=== PATIENT | male | born 1965 | race Caucasian/White ===

== ENCOUNTER 2017-12-17 09:21 | Emergency (ER) | payer BC ==
--- NOTE | 2017-12-17 10:07 | ED ---
General Adult HPI - General Chief complaint: Fall Stated complaint: FALL, LEFT RIB PAIN, LEFT ELBOW Time Seen by Provider: 12/17/17 09:58 Source: patient, RN notes reviewed Mode of arrival: wheelchair Limitations: no limitations - History of Present Illness Initial comments: 52-year-old male presents to the emergency department with a chief complaint of left-sided rib pain and left sided elbow pain. Patient states that he slipped and fell on the ice. Patient states he came down on his left ribs he felt as if he heard a crack. Patient states it hurts to take a breath. He states it's tender to touch. Patient states that his head or neck. Patient does admit to some left elbow pain as well. Patient states is not currently having any other symptoms. Patient denies any other injury from the incident. Patient denies any recent fever, chills, shortness of breath, back pain, abdominal pain, nausea vomiting, numbness or tingling, dysuria or hematuria, constipation or diarrhea, headaches or visual changes, or any other current symptoms. - Related Data Home Medications Medication Instructions Recorded Confirmed Atorvastatin [Lipitor] 10 mg PO HS 12/17/17 12/17/17 Multivitamins, Thera [Multivitamin 1 tab PO DAILY 12/17/17 12/17/17 (formulary)] OXcarbazepine [Trileptal] 300 mg PO QAM 12/17/17 12/17/17 OXcarbazepine [Trileptal] 600 mg PO HS 12/17/17 12/17/17 busPIRone HCL [busPIRone HCL] 5 mg PO BID 12/17/17 12/17/17 fluvoxaMINE MALEATE [Fluvoxamine 100 mg PO DAILY 12/17/17 12/17/17 Maleate] Previous Rx's Medication Instructions Recorded Hydrocodone/Acetaminophen [[place] 1 each PO Q6HR PRN #20 tab 12/17/17 5-325] Allergies Allergy/AdvReac Type Severity Reaction Status Date / Time No Known Allergies Allergy Verified 12/17/17 10:04 Review of Systems ROS Statement: Those systems with pertinent positive or pertinent negative responses have been documented in the HPI. ROS Other: All systems not noted in ROS Statement are negative. Past Medical History Past Medical History: No Reported History History of Any Multi-Drug Resistant Organisms: None Reported Past Surgical History: Hernia Repair, Orthopedic Surgery Additional Past Surgical History / Comment(s): right shoulder repair, right bicep repair Past Psychological History: Bipolar Smoking Status: Never smoker Past Alcohol Use History: Occasional Past Drug Use History: None Reported General Exam Limitations: no limitations General appearance: alert, in no apparent distress Head exam: Present: atraumatic, normocephalic, normal inspection Eye exam: Present: normal appearance, PERRL, EOMI. Absent: scleral icterus, conjunctival injection, periorbital swelling Neck exam: Present: normal inspection. Absent: tenderness, meningismus, lymphadenopathy Respiratory exam: Present: normal lung sounds bilaterally, chest wall tenderness (Left-sided). Absent: respiratory distress, wheezes, rales, rhonchi , stridor Cardiovascular Exam: Present: regular rate, normal rhythm, normal heart sounds. Absent: systolic murmur, diastolic murmur, rubs, gallop, clicks GI/Abdominal exam: Present: soft, normal bowel sounds. Absent: distended, tenderness, guarding, rebound, rigid Extremities exam: Present: normal inspection, full ROM, tenderness (Minimal tenderness to left lateral elbow), normal capillary refill. Absent: pedal edema , joint swelling, calf tenderness Back exam: Present: normal inspection Neurological exam: Present: alert, oriented X3 Psychiatric exam: Present: normal affect, normal mood Skin exam: Present: warm, dry, intact, normal color. Absent: rash Course Vital Signs 12/17/17 09:53 Temperature 97.8 F Pulse Rate 62 Respiratory 18 Rate Blood Pressure 139/91 O2 Sat by Pulse 98 Oximetry Medical Decision Making - Medical Decision Making 52-year-old male presents emergency department with chief complaint of left- sided rib pain after a slip and fall. At this time patient does appear to have left-sided rib fractures. The eighth and the sixth rib. This elicits patient pain medication for home. We discussed care of her parameters. We discussed return parameters and follow-up and all questions. Patient stated that he understood he is given this plan. He will be discharged. - Radiology Data Radiology results: report reviewed, image reviewed Disposition Clinical Impression: Fall, Fracture of rib of left side Disposition: HOME SELF-CARE Condition: Stable Instructions: Rib Fracture (ED) Additional Instructions: Please use medication as discussed. Please follow up with family doctor if symptoms have not improved over the next two days. Please return to the emergency room if your symptoms increase or worsen or for any other concerns. Prescriptions: Hydrocodone/Acetaminophen [[place] 5-325] 1 each PO Q6HR PRN #20 tab PRN Reason: Pain Referrals: James Carroll MD [Primary Care Provider] - 1-2 days Time of Disposition: 11:43
--- NOTE | 2017-12-17 11:30 | XR ---
EXAMINATION TYPE: XR elbow complete LT DATE OF EXAM: 12/17/2017 COMPARISON: NONE HISTORY: Pain FINDINGS: Three views of the elbow demonstrate no pathologic joint effusion. The osseous structures are intact . There is no acute fracture or dislocation. Tiny spur involving the radial head. IMPRESSION: 1. No acute fracture or dislocation. If symptoms persist follow-up study in 7 to 10 days could be ob tained.
--- NOTE | 2017-12-17 11:41 | XR ---
EXAMINATION TYPE: XR ribs LT w pa chest xray DATE OF EXAM: 12/17/2017 COMPARISON: NONE HISTORY: L side lower rib pain from fall today TECHNIQUE: 5 views submitted FINDINGS: Frontal view of the chest and 4 views of the ribs are submitted. There are deformities involving the lateral left fifth sixth and seventh ribs compatible with previou s trauma. Subtle deformity involving the lateral margin of the left eighth rib. There also is a defor mity involving the posterior lateral sixth rib suspicious for acute fracture. IMPRESSION: 1. Acute fracture minimally displaced anterolateral left eighth rib and posterior lateral sixth rib. 2. Multiple chronic rib deformities.
[2017-12-17] MEDS ORDERED: KETOROLAC 60 MG/2 ML VIAL IM STA (11:43)
[2017-12-17] MEDS ORDERED: HYDROcodone/APAP 5-325MG 1 EACH TAB PO STA (11:43)
[2017-12-17 12:06] VITALS: BP 157/89; PULSE 58; RESP 16; TEMP 98.5
== END 2017-12-17 12:16 | disposition home or self-care (01) ==
LOC: EC 09:21
DX: S22.42XA Multiple fractures of ribs, left side, initial encounter for closed fracture (principal); M25.522 Pain in left elbow; F31.9 Bipolar disorder, unspecified; Z98.890 Other specified postprocedural states; Z79.899 Other long term (current) drug therapy; W00.0XXA Fall on same level due to ice and snow, initial encounter; Y92.89 Other specified places as the place of occurrence of the external cause
CPT/HCPCS: 71101; 73080; 99283; J1885

== ENCOUNTER 2023-09-08 08:54 | Emergency (ER) | payer BC, OTHER ==
[2023-09-08 09:04] VITALS: BP 144/90; PULSE 79; RESP 14; TEMP 99.1
--- NOTE | 2023-09-08 10:36 | XR ---
EXAMINATION TYPE: XR ribs LT w pa chest xray DATE OF EXAM: 09/08/2023 9:46 AM CLINICAL INDICATION:Male, 58 years old with history of fall; [facility] COMPARISON: Similar study dated 10/24/2018 TECHNIQUE: Frontal and oblique views of the ribs with frontal chest radiograph. FINDINGS: Likely chronic-appearing multiple mild left rib deformities. No definite acute displaced or deforming rib fracture is identified.. Overall, the lungs are clear without evidence of pneumothorax . The cardiac silhouette is upper normal in size. The remaining osseous structures appear intact. M ild degenerative change of the shoulders. Mild/moderate degenerative change of the spine with apex ri ght curvature centered around the thoracolumbar junction. IMPRESSION: Likely chronic-appearing multiple mild left rib deformities. No definite acute displaced or deforming rib fracture is identified.
--- NOTE | 2023-09-08 10:44 | ED ---
Fall HPI - General Chief Complaint: Fall Stated Complaint: fall Time Seen by Provider: 09/08/23 09:15 Source: patient, RN notes reviewed Mode of arrival: ambulatory Limitations: no limitations - History of Present Illness Initial Comments: 58-year-old male presents emergency Department with chief complaint of fall. Patient states she slipped on wet surface falling onto his left side was a left rib pain. He has pain with deep respiration, movement no head injury or loss consciousness no other injuries noted. - Related Data Home Medications Medication Instructions Recorded Confirmed Atorvastatin [Lipitor] 10 mg PO HS 12/17/17 11/10/19 Cyclobenzaprine [Flexeril] 10 mg PO DAILY 11/10/19 11/10/19 Cyclobenzaprine [Flexeril] 30 mg PO HS 11/10/19 11/10/19 Ibuprofen [Advil] 400 mg PO Q8HR PRN 11/10/19 11/10/19 Ibuprofen [Motrin] 800 mg PO Q6H PRN 11/10/19 11/10/19 busPIRone HCl [Buspar] 10 mg PO BID 11/10/19 11/10/19 fluvoxaMINE MALEATE 100 mg PO DAILY 11/10/19 11/10/19 valACYclovir HCL [Valtrex] 1,000 mg PO BID 11/10/19 11/10/19 Previous Rx's Medication Instructions Recorded Amoxic-Pot Clav 875-125Mg 1 tab PO Q12HR #20 tablet 11/10/19 [Augmentin 875-125] Cetirizine HCl/Pseudoephedrine 1 each PO BID #14 tab.er.12h 11/10/19 [Zyrtec-D Tablet] Allergies Allergy/AdvReac Type Severity Reaction Status Date / Time No Known Allergies Allergy Verified 09/08/23 09:02 Review of Systems ROS Statement: Those systems with pertinent positive or pertinent negative responses have been documented in the HPI. ROS Other: All systems not noted in ROS Statement are negative. Past Medical History Past Medical History: No Reported History History of Any Multi-Drug Resistant Organisms: MRSA Date of last positivie culture/infection: 03/02/23 MDRO Source:: Back Past Surgical History: Hernia Repair, Orthopedic Surgery Additional Past Surgical History / Comment(s): left shoulder repair, right bicep repair Past Psychological History: Bipolar Smoking Status: Never smoker Past Alcohol Use History: Occasional Past Drug Use History: None Reported General Exam Limitations: no limitations General appearance: alert, in no apparent distress Head exam: Present: atraumatic, normocephalic, normal inspection Eye exam: Present: normal appearance, PERRL, EOMI. Absent: scleral icterus, conjunctival injection, periorbital swelling ENT exam: Present: normal exam, normal oropharynx, mucous membranes moist Neck exam: Present: normal inspection, full ROM. Absent: tenderness, meningismus, lymphadenopathy Respiratory exam: Present: normal lung sounds bilaterally, chest wall tenderness (Left-sided). Absent: respiratory distress, wheezes, rales, rhonchi, stridor Cardiovascular Exam: Present: regular rate, normal rhythm, normal heart sounds. Absent: systolic murmur, diastolic murmur, rubs, gallop, clicks GI/Abdominal exam: Present: soft, normal bowel sounds. Absent: distended, tenderness, guarding, rebound, rigid Extremities exam: Present: normal inspection, full ROM, normal capillary refill. Absent: tenderness, pedal edema, joint swelling, calf tenderness Course Vital Signs 09/08/23 08:59 Temperature 99.1 F Pulse Rate 79 Respiratory 14 Rate Blood Pressure 144/90 O2 Sat by Pulse 98 Oximetry Medical Decision Making - Medical Decision Making Was pt. sent in by a medical professional or institution ([facility], RESEARCH EDITOR, urgent care, hospital, or long term...) When possible be specific @ -No Did you speak to anyone other than the patient for history (EMS, parent, family, police, friend...)? What history was obtained from this source @ -No Did you review nursing and triage notes (agree or disagree)? Why? @ -I reviewed and agree with nursing and triage notes Were old charts reviewed (outside hosp., previous admission, EMS record, old EKG, old radiological studies, urgent care reports/EKG's, long term records)? Report findings @ -No old charts were reviewed Differential Diagnosis (chest pain, altered mental status, abdominal pain women, abdominal pain men, vaginal bleeding, weakness, fever, dyspnea, syncope, headache, dizziness, GI bleed, back pain, seizure, CVA, palpatations, mental health, musculoskeletal)? @ -Fall, rib contusion, rib fracture] EKG interpreted by me (3pts min.). @ -None X-rays interpreted by me (1pt min.). @ -X-ray rib series with PA chest no acute fracture there is chronic injuries noted. CT interpreted by me (1pt min.). @ -None done U/S interpreted by me (1pt. min.). @ -None done What testing was considered but not performed or refused? (CT, X-rays, U/S, labs)? Why? @ -None What meds were considered but not given or refused? Why? @ -None Did you discuss the management of the patient with other professionals (professionals i.e. , PA, RESEARCH EDITOR, lab, RT, psych nurse, social work manager, nurse office, teacher, chief sustainability officer, case managers)? Give summary @ -No Was smoking cessation discussed for >3mins.? @ -No Was critical care preformed (if so, how long)? @ -No Were there social determinants of health that impacted care today? How? (Homelessness, low income, unemployed, alcoholism, drug addiction, transportation, low edu. Level, literacy, decrease access to med. care, [facility], rehab)? @ -No Was there de-escalation of care discussed even if they declined (Discuss DNR or withdrawal of care, Hospice)? DNR status @ -No What co-morbidities impacted this encounter? (DM, HTN, Smoking, COPD, CAD, Cancer, CVA, ARF, Chemo, Hep., AIDS, mental health diagnosis, sleep apnea, morbid obesity)? @ -None Was patient discharged/ admitted @ Discharge patient x-rays were negative for acute process. Patient has a contusion we discussed possible subtle identified rib fracture. Patient will be discharged in stable condition return parameters discussed. Undiagnosed new problem with uncertain prognosis? @ -No Drug Therapy requiring intensive monitoring for toxicity (Heparin, Nitro, Insulin, Cardizem)? @ -No Were any procedures done? @ -No Diagnosis/symptom? @ -Rib contusion left, fall Acute, or Chronic, or Acute on Chronic? @ -Acute Uncomplicated (without systemic symptoms) or Complicated (systemic symptoms)? @ -Uncomplicated Side effects of treatment? @ -No Exacerbation, Progression, or Severe Exacerbation? @ -No Poses a threat to life or bodily function? How? (Chest pain, [place], [place], pneumonia, PE, COPD, DKA, ARF, appy, cholecystitis, CVA, Diverticulitis, Homicidal, Suicidal, threat to staff... and all critical care pts) @ -No Disposition Clinical Impression: Fall, Contusion of rib on left side Disposition: HOME SELF-CARE Condition: Stable Instructions (If sedation given, give patient instructions): Rib Contusion (ED) Additional Instructions: Please return to the Emergency Department if symptoms worsen or any other concerns. Is patient prescribed a controlled substance at d/c from ED?: No Referrals: James Carroll MD [Primary Care Provider] - 1-2 days Time of Disposition: 10:43
[2023-09-08] MEDS ORDERED: ACET/COD 300 MG/30 MG STARTER PACK 6 TAB BTL PO STA (11:08)
== END 2023-09-08 11:17 | disposition home or self-care (01) ==
LOC: EC 08:54
DX: S20.212A Contusion of left front wall of thorax, initial encounter (principal); F31.9 Bipolar disorder, unspecified; Z79.899 Other long term (current) drug therapy; W01.0XXA Fall on same level from slipping, tripping and stumbling without subsequent striking against object, initial encounter
CPT/HCPCS: 99283

== ENCOUNTER 2025-04-17 08:43 | Day surgery (SDC) | payer BC, MEDICARE ==
[~2025-04-17 08:43] MED LIST: ALPRAZolam 0.25 MG TAB PO PRN; ALPRAZolam 0.5 MG TAB PO PRN; HEPARIN SODIUM,PORCINE (1 ML) 2,500 UNIT in SODIUM CHLORIDE 0.9% 250 ML IRRIGATION PRN; HEPARIN SODIUM,PORCINE 10,000 UNIT in SODIUM CHLORIDE 0.9% 1,000 ML IRRIGATION PRN; NITROGLYCERIN SL TABS 0.4 MG TAB SUBLINGUAL PRN
[2025-04-17 09:29] LABS: Basophils # (A) 0.05 10*3/uL (0.00-0.10); Basophils % (A) 0.8 %; Eosinophils # (A) 0.21 10*3/uL (0.04-0.35); Eosinophils % (A) 3.3 %; HCT 43.5 % (39.6-50.0); HGB 15.7 g/dL (13.0-17.0); Lymphocytes # (A) 1.79 10*3/uL (0.90-5.00); Lymphocytes % (A) 28.5 %; MCH 30.6 pg (27.0-32.0); MCHC 36.1 g/dL (32.0-37.0); MCV 84.8 fL (80.0-97.0); Monocytes # (A) 0.63 10*3/uL (0.20-1.00); Neutrophils # (A) 3.58 10*3/uL (1.80-7.70); Neutrophils % (A) 57.1 %; Platelet Count 219 10*3/uL (140-440); RBC 5.13 10*6/uL (4.40-5.60); RDW 12.3 % (11.5-14.5); WBC 6.28 10*3/uL (4.50-10.00)
[2025-04-17] MEDS: IV FLUID CONTINUATION 1,000 ML IV ONE (09:29)
[2025-04-17 09:49] LABS: African American GFR (CKD) >90 (>60 ml/min/1.73 sqM); Anion Gap 8 mmol/L; Blood Urea Nitrogen 12 mg/dL (9-20); Calcium 9.4 mg/dL (8.4-10.2); Carbon Dioxide 23 mmol/L (22-30); Chloride 106 mmol/L (98-107); Glucose 102 mg/dL (74-99); Non-African American GFR(CKD) >90 (>60 ml/min/1.73 sqM); Sodium 137 mmol/L (137-145)
[2025-04-17 09:53] LABS: Potassium 4.5 mmol/L (3.5-5.1)
[2025-04-17] MEDS: MIDAZOLAM 2 MG/2 ML VIAL IVP ONE (11:15)
[2025-04-17] MEDS: LIDOCAINE 1% INJ 10MG/ML (20 ML MDV) SQ ONE (11:16)
[2025-04-17] MEDS: VERAPAMIL SYRINGE (5 MG/10 ML) INTRAARTER ONE (11:17)
[2025-04-17] MEDS: HEPARIN SODIUM 1,000 UN/ML (10ML VL) IVP ONE ×3 (11:18→12:17)
[2025-04-17] MEDS: HEPARIN SODIUM,PORCINE (1 ML) 2,500 UNIT in SODIUM CHLORIDE 0.9% 250 ML IRRIGATION ONE (11:22)
[2025-04-17] MEDS: HEPARIN SODIUM (1,000 UNIT/ML) 1,000 UNIT in SODIUM CHLORIDE 0.9% 1,000 ML IRRIGATION ONE (11:22)
[2025-04-17] MEDS: PRASUGREL 10 MG TAB PO ONE (11:33)
[2025-04-17] MEDS: IOPAMIDOL-370 100ML BTL INJ ONE ×2 (11:53→12:17)
[2025-04-17] MEDS: NITROGLYCERIN 1000MCG/10ML SYRINGE INTRAARTER ONE (12:07)
[2025-04-17] MEDS: niCARdipine Syringe (1,000 mcg/10 mL) INTRAARTER ONE (12:07)
[2025-04-17] MEDS ORDERED: ZOLPIDEM 5 MG TAB PO PRN (12:16)
[2025-04-17] MEDS ORDERED: MAG HYDROX/AL HYDROX/SIMETH 30 ML CUP PO PRN (12:16)
[2025-04-17] MEDS ORDERED: RX INFO: IV CONTRAST WAS GIVEN 1 EACH MISC MISCELLANE PRN (12:16)
[2025-04-17] MEDS ORDERED: NITROGLYCERIN SL TABS 0.4 MG TAB SUBLINGUAL PRN (12:16)
[2025-04-17] MEDS ORDERED: ATROPINE SULFATE 0.1 MG/ML 10ML SYRINGE IV PRN (12:16)
--- NOTE | 2025-04-17 12:21 | P.PCN ---
Date of Procedure: 04/17/25 Operative Findings: CARDIAC CATHETERIZATION AND PERCUTANEOUS CORONARY INTERVENTION PERFORMING PHYSICIAN: Jaret Shirley MD, [facility] PROCEDURE PERFORMED: 1. Selective right and left coronary angiogram and left heart catheterization 2. Successful stenting of medial using 4.0 x 23 mm Xience GIL with an excellent angiographic results 3. Adjunctive use of IVUS 4. Ultrasound-guided access of the right radial artery INDICATION: Symptomatic 60-year-old gentleman with abnormal stress echocardiogram COMPLICATION: None APPROACH: Right radial artery LEVEL OF SEDATION: Moderate with the sedation time off 60 minutes PROCEDURE DESCRIPTION: After obtaining informed consent the patient was brought to the cardiac Hair Mixer with right radial artery was cannulated using micropuncture technique under ultrasound guidance a micropuncture wire passed easily then I placed a 6 Persian 11 cm sheath at the right radial artery. I gave the patient 2 mg of verapamil intra-arterial and 5000's of heparin intravenous with additional heparin given based on the ACT. Selective right and left coronary angiogram and left heart catheterization performed using JR4 and JL 3.5 catheters. After that I decided to intervene on the LAD. I did engage the left main using JL 3.5 guiding catheter. The patient was loaded with Effient. Subsequently I wired the LAD using a run-through wire. Predilatation was performed using 2.5 mm score flex balloon and subsequently 3.5 mm score flex balloon. Before ballooning I did IVUS which showed a diameter around 4 mm. I did stent the mid LAD using 4.0 x 23 mm stent which was initially postdilated using 4 mm balloon and then IVUS was performed and showed that the stent in the midportion was not fully expanded so I did postdilated using 4.5 mm balloon. Final angiogram showed excellent angiographic results and the procedure was completed with no complication SELECTIVE CORONARY ANGIOGRAM: The right coronary artery: Large caliber vessel and a dominant vessel with mild disease involving the mid and distal portion Left main: Has mild disease of The left circumflex: Large caliber vessel and nondominant vessel with also mild to moderate disease involving the midportion The left anterior descending artery: Large caliber vessel with critical disease involving the midportion and also severe disease involving a medium size diagonal branch HEMODYNAMICS: The LVEDP was about 12 mmHg with no significant gradient across aortic valve CONCLUSION: 1. Critical disease involving the mid LAD. At the successful PCI of the mid LAD as described above 2. Severe disease involving the medium size diagonal branch I would consider medical treatment at this point 3. Mild to moderate disease involving the RCA and LCx 4. Normal left-sided filling POSTPROCEDURE MANAGEMENT: 1. Dual antiplatelet therapy using aspirin and for at least 6 month 2. Aggressive cholesterol control 3. Follow-up with the patient
[2025-04-17] MEDS: ASPIRIN 325 MG TAB PO STA (15:05)
[2025-04-17] MEDS: ATORVASTATIN 80 MG TAB PO STA (15:05)
[2025-04-17] MEDS: SODIUM CHLORIDE 0.9% 1,000 ML in EMPTY BAG 1 BAG IV SCH ×2 (15:06→17:12)
[2025-04-18 09:27] VITALS: BP 121/80; PULSE 58; RESP 16; TEMP 98.1
[2025-04-18] MEDS: LOSARTAN 25 MG TAB PO SCH (09:35)
[2025-04-18] MEDS: METOPROLOL SUCCINATE (ER) 25 MG TAB.ER.24H PO SCH (09:35)
[2025-04-18] MEDS: ASPIRIN 325 MG TAB PO SCH (09:35)
[2025-04-18] MEDS: ATORVASTATIN 80 MG TAB PO SCH (09:35)
--- NOTE | 2025-04-18 09:35 | P.CRDCN ---
History of Present Illness History of present illness: This is a 60-year-old male who underwent cardiac catheterization yesterday with Dr. Shirley. Patient was found to have critical disease involving the mid LAD, severe disease involving medium size diagonal branch, mild to moderate disease involving the RCA and circumflex. Patient underwent stenting of the mid LAD. Patient examined this morning at the bedside. Patient currently denies chest pain or pressure. She denies shortness of breath. Vital signs are stable. Patient to continue on dual antiplatelet therapy with aspirin and Effient for at least 6 months. Continue current statin therapy with LDL goal less than 70. Please see EMR for further hospital course details. Discharge diagnosis Coronary artery disease, status post PCI of mid LAD Nurse practitioner note has been reviewed by physician. Signing provider agrees with the documented findings, assessment, and plan of care documented by CLOTH WASHER BACK TENDER as a scribe. Past Medical History Past Medical History: Chest Pain / Angina, GERD/Reflux Additional Past Medical History / Comment(s): abnormal stress test, jaw pain with activity shoulder down to elbow , shortness of breath History of Any Multi-Drug Resistant Organisms: MRSA Date of last positivie culture/infection: 03/02/23 MDRO Source:: Back Past Surgical History: Hernia Repair, Orthopedic Surgery Additional Past Surgical History / Comment(s): left shoulder repair, right bicep repair Past Anesthesia/Blood Transfusion Reactions: Postoperative Nausea & Vomiting (PONV) Past Psychological History: No Psychological Hx Reported Smoking Status: Never smoker Past Alcohol Use History: Occasional Past Drug Use History: None Reported - Past Family History Father Family Medical History: Myocardial Infarction ([place]) Additional Family Medical History / Comment(s): pacemaker Medications and Allergies Home Medications Medication Instructions Recorded Confirmed Type Losartan [Cozaar] 25 mg PO DAILY 04/15/25 04/17/25 History Metoprolol Succinate [Metoprolol 25 mg PO DAILY 04/17/25 04/17/25 History Succinate ER] Rosuvastatin Calcium [Crestor] 40 mg PO DAILY 04/17/25 04/17/25 History Aspirin 81 mg PO DAILY #90 tab 04/18/25 Rx Nitroglycerin Sl Tabs [Nitrostat] 0.4 mg SUBLINGUAL Q5M PRN #25 tab 04/18/25 Rx Prasugrel [Effient] 10 mg PO DAILY #90 tab 04/18/25 Rx Allergies Allergy/AdvReac Type Severity Reaction Status Date / Time No Known Allergies Allergy Verified 04/15/25 15:30 Physical Exam Vitals: Vital Signs Temp Pulse Resp BP Pulse Ox 04/18/25 08:00 98.1 F 58 L 16 121/80 96 04/18/25 04:03 97.6 F 55 L 18 124/83 97 04/18/25 00:32 98.3 F 57 L 18 130/83 95 04/17/25 21:00 98.3 F 63 18 126/81 96 04/17/25 16:33 60 18 113/77 96 04/17/25 16:30 60 18 113/77 96 04/17/25 15:16 72 18 139/90 98 04/17/25 13:30 70 14 139/86 98 04/17/25 13:00 70 14 94/60 99 04/17/25 12:45 65 14 127/85 100 04/17/25 12:30 63 14 123/80 100 Intake and Output 04/17/25 04/18/25 04/18/25 22:59 06:59 14:59 Intake Total 300 Balance 300 Intake: IV 300 Other: Voiding Method Toilet Toilet # Voids 4 2 Weight 85.6 kg 84 kg Results 04/17/25 09:15 04/17/25 09:15 Comprehensive Metabolic Panel 04/17/25 Range/Units 09:15 Sodium 137 (137-145) mmol/L Potassium 4.5 (3.5-5.1) mmol/L Chloride 106 (98-107) mmol/L Carbon Dioxide 23 (22-30) mmol/L BUN 12 (9-20) mg/dL Creatinine 0.75 (0.66-1.25) mg/dL Glucose 102 H (74-99) mg/dL Calcium 9.4 (8.4-10.2) mg/dL Current Medications Generic Name Dose Route Start Last Admin Trade Name Freq PRN Reason Stop Dose Admin Al Hydroxide/Mg Hydroxide 30 ml 04/17/25 12:16 Mag Hydrox/Al Hydrox/Simeth 30 Ml Cup PO 05/17/25 12:15 Q4HR PRN Heartburn Alprazolam 0.25 mg 04/17/25 05:57 Alprazolam 0.25 Mg Tab PO 05/17/25 05:56 Q6HR PRN Mild Anxiety Alprazolam 0.5 mg 04/17/25 05:57 Alprazolam 0.5 Mg Tab PO 05/17/25 05:56 Q6HR PRN Moderate Anxiety Aspirin 81 mg 04/18/25 09:45 Aspirin 325 Mg Tab PO 05/18/25 08:59 DAILY [facility] Atorvastatin Calcium 80 mg 04/18/25 09:00 Atorvastatin 80 Mg Tab PO 05/18/25 08:59 DAILY [facility] Atropine Sulfate 0.5 mg 04/17/25 12:16 Atropine Sulfate 0.1 Mg/Ml 10ml Syringe IV 05/17/25 12:15 ONCE PRN Symptomatic Bradycardia Sodium Chloride 1,000 ml/ IV 1,000 mls @ 83.915 mls/hr 04/17/25 06:00 04/18/25 04:05 Solution IV 05/17/25 05:59 Not Given .[id number] FRANKY 1 ML/KG/HR Losartan Potassium 25 mg 04/18/25 09:00 Losartan 25 Mg Tab PO 05/18/25 08:59 DAILY [facility] Metoprolol Succinate 25 mg 04/18/25 09:00 Metoprolol Succinate (Er) 25 Mg Tab.Er.24h PO 05/18/25 08:59 DAILY [facility] Miscellaneous Information 1 each 04/17/25 12:16 Rx Info: Iv Contrast Was Given 1 Each Misc MISCELLANE 04/19/25 12:15 DAILY PRN Per Protocol Nitroglycerin 0.4 mg 04/17/25 05:57 Nitroglycerin Sl Tabs 0.4 Mg Tab SUBLINGUAL 05/17/25 05:56 Q5M PRN Chest Pain Prasugrel 10 mg 04/18/25 09:00 Prasugrel 10 Mg Tab PO 05/18/25 08:59 DAILY [facility] Protocol Zolpidem Tartrate 5 mg 04/17/25 12:16 Zolpidem 5 Mg Tab PO 05/17/25 12:15 HS PRN Insomnia Intake and Output 04/17/25 04/18/25 04/18/25 22:59 06:59 14:59 Intake Total 300 Balance 300 Intake: IV 300 Other: Voiding Method Toilet Toilet # Voids 4 2 Weight 85.6 kg 84 kg 04/17/25 09:15 04/17/25 09:15
[2025-04-18] MEDS ORDERED: ASPIRIN 81 MG PO SCH (09:45)
[2025-04-18 09:50] LABS: African American GFR (CKD) >90 (>60 ml/min/1.73 sqM); Non-African American GFR(CKD) >90 (>60 ml/min/1.73 sqM)
[2025-04-18] MEDS: PRASUGREL 10 MG TAB PO SCH (11:17)
== END 2025-04-18 11:45 | disposition home or self-care (01) ==
LOC: CATHCVL 08:43 → 3SCARD 14:40 → CATHCVL 04-18 11:45
PROVIDERS: ATTEND Internal Medicine Interventional Cardiology
DX: I25.10 Atherosclerotic heart disease of native coronary artery without angina pectoris (principal); Z79.02 Long term (current) use of antithrombotics/antiplatelets; Z79.82 Long term (current) use of aspirin; Z79.899 Other long term (current) drug therapy
CPT/HCPCS: 92978; 93458; 80048; 82565; 85025; C9600; C1769 ×2; C1894; C1753; C1874; C1725 ×7; C1887; J2250; J1644 ×2; J2003; Q9967; J2305